=== PATIENT | male | born 1950 | race Native Hawaiian/Other Pacific Islander ===

== ENCOUNTER 2017-07-20 13:32 | Outpatient (CLI) | payer OTHER | END 2017-07-20 19:00 | disposition home or self-care (01) | LOC: RAD 13:32 | DX: R06.02 Shortness of breath (principal) ==

== ENCOUNTER 2017-07-21 07:56 | Outpatient (CLI) | payer OTHER ==
[2017-07-21 08:16] LABS: PLATELET COUNT 189 K/uL (142-355)
[2017-07-21 09:02] LABS: SODIUM 143 mmol/L (136-145)
== END 2017-07-21 19:01 | disposition home or self-care (01) ==
LOC: LABW 07:56
PROVIDERS: Internal Medicine
DX: I10 Essential (primary) hypertension (principal); R53.83 Other fatigue; Z12.5 Encounter for screening for malignant neoplasm of prostate
CPT/HCPCS: 36415; 80053; 80061; 81000; 84153; 84439; 84443; 85027

== ENCOUNTER 2022-08-05 15:05 | Outpatient (CLI) | payer OTHER | END 2022-08-05 19:00 | disposition home or self-care (01) | LOC: RAD 15:05 | PROVIDERS: ATTEND Internal Medicine | DX: M25.551 Pain in right hip (principal) ==

== ENCOUNTER 2022-08-18 07:39 | Emergency (ER) | payer OTHER ==
[~2022-08-18] VITALS: Ht 165.1 cm; Wt 106.6 kg
[2022-08-18 07:43] VITALS: TEMP 98.9
[2022-08-18 08:59] VITALS: BP 110/62
== END 2022-08-18 09:04 | disposition home or self-care (01) ==
LOC: ED 07:39
DX: M25.551 Pain in right hip (principal); W06.XXXA Fall from bed, initial encounter; Y92.89 Other specified places as the place of occurrence of the external cause
CPT/HCPCS: 96372; 99283; J1885; J2930

== ENCOUNTER 2022-08-26 12:30 | Outpatient (CLI) | payer OTHER | END 2022-08-26 20:01 | disposition home or self-care (01) | LOC: MRI 12:30 | PROVIDERS: ATTEND Internal Medicine | DX: M47.27 Other spondylosis with radiculopathy, lumbosacral region (principal) ==

== ENCOUNTER 2022-12-30 09:15 | Outpatient (CLI) | payer OTHER ==
[~2022-12-30] VITALS: Ht 165.1 cm; Wt 113.4 kg
== END 2022-12-30 19:07 | disposition home or self-care (01) ==
LOC: NM 09:15
PROVIDERS: ATTEND Nurse Practitioner
DX: I10 Essential (primary) hypertension (principal); E78.2 Mixed hyperlipidemia; Z87.891 Personal history of nicotine dependence; E66.9 Obesity, unspecified; Z09 Encounter for follow-up examination after completed treatment for conditions other than malignant neoplasm
CPT/HCPCS: A9500; J2785